=== PATIENT | male | born 1985 | race Caucasian/White ===

== ENCOUNTER 2017-11-10 23:21 | Emergency (ER) | payer OTHER ==
[~2017-11-10] VITALS: Ht 180.3 cm; Wt 81.7 kg
[2017-11-11] MEDS ORDERED: KEFLEX500 MG PO (01:17)
== END 2017-11-11 01:40 | disposition home or self-care (01) ==
LOC: ED 23:21
DX: S00.262A Insect bite (nonvenomous) of left eyelid and periocular area, initial encounter (principal); S00.86XA Insect bite (nonvenomous) of other part of head, initial encounter; F17.200 Nicotine dependence, unspecified, uncomplicated; W57.XXXA Bitten or stung by nonvenomous insect and other nonvenomous arthropods, initial encounter
CPT/HCPCS: 99283